=== PATIENT | female | born 1955 | race Caucasian/White ===

== ENCOUNTER → 2018-01-14 | Outpatient (CLI) | payer OTHER ==
--- NOTE | 2018-01-14 12:49 | WOMENS IMAGING REPORT ---
EXAM DESCRIPTION: BILAT SCREENING MAMMO W/CAD COMPLETED DATE/TIME: 01/14/2018 7:29 am REASON FOR STUDY: SCREENING MAMMO Z12.31 ENCNTR SCREEN MAMMOGRAM FOR MALIGNANT NEOPLASM OF KEENAN COMPARISON: 2012 TECHNIQUE: Standard craniocaudal and mediolateral oblique views of each breast recorded using digita l acquisition. LIMITATIONS: None. FINDINGS: Findings present which are benign by mammographic criteria. No suspicious masses, calcifi cations or architectural distortion. Pertinent benign findings: Stable benign asymmetrically dense tissue in the upper inner quadrant left breast Read with the assistance of CAD. .[facility] - R2 Cenova Version 1.3 .[facility] Imaging - R2 Cenova Version 1.3 .[facility] Imaging - R2 Cenova Version 2.[address] - R2 Cenova Version 2.4 .[facility] - R2 Steaming Cabinet Tender Version 9.2 Benign mammographic findings may include one or more of the following: Smooth masses, popcorn/rim/co arse calcifications, asymmetries, post-procedure changes, and lesions with long-standing stability. IMPRESSION: BENIGN MAMMOGRAPHIC FINDINGS. BIRADS 2 BREAST DENSITY: b. There are scattered areas of fibroglandular density. BIRAD: 2 BENIGN FINDING(S) RECOMMENDATION: ROUTINE SCREENING COMMENT: The patient has been notified of the results by letter per SA requirements. Additional no tification policies are in place for contacting patient with suspicious or incomplete findings. Quality ID #[id number]: The [employer] recommends an annual screening mammogram for women aged 40 years or over. This facility utilizes a reminder system to ensure that all patients receive reminder letters, and/or direct phone calls for appointments. This includes reminders for routine scr eening mammograms, diagnostic mammograms, or other Breast Imaging Interventions when appropriate. Th is patient will be placed in the appropriate reminder system. The [employer] (ACR) has developed recommendations for screening MRI of the breast s in certain patient populations, to be used in conjunction with mammography. Breast MRI surveillanc e may be appropriate for women with more than 20% lifetime risk of developing breast cancer as deter mined by genetic testing, significant family history of the disease, or history of mantle radiation f or Hodgkins Disease. ACR Practice Guidelines 2008. TECHNICAL DOCUMENTATION: FINDING NUMBER: (1) ASSESSMENT: (1) JOB ID: [id number] [employer]- All Rights Reserved Reading location - IP/workstation name: [facility]
== END ==
LOC: WI 07:12
PROVIDERS: ATTEND Physician Assistant Medical
DX: Z12.31 Encounter for screening mammogram for malignant neoplasm of breast (principal)
CPT/HCPCS: 77067

== ENCOUNTER 2018-11-09 07:21 | Observation (INO) | payer OTHER ==
[2018-11-09] MEDS ORDERED: DEXAMETHASONE SOD PHOSPHATE INJ 4 MG/1 ML VIAL ONE (08:09)
[2018-11-09] MEDS ORDERED: ONDANSETRON HCL INJ/PF 4 MG/2 ML SDV ONE ×2 (08:09→16:04)
[2018-11-09] MEDS ORDERED: SUCCINYLCHOLINE CHLORIDE INJ 200 MG/10 ML VIAL ONE (08:09)
[2018-11-09 09:29] LABS: ABSOLUTE EOSINOPHILS # (AUTO) 0.1 10^3/uL (0.0-0.6); ABSOLUTE LYMPHOCYTES (AUTO) 2.1 10^3/uL (0.5-4.7); ABSOLUTE MONOCYTES (AUTO) 0.7 10^3/uL (0.1-1.4); ABSOLUTE NEUT (AUTO) 3.4 10^3/uL (1.7-8.2); BASOPHILS % (AUTO) 0.4 % (0-2); EOSINOPHILS % (AUTO) 2.2 % (0-6); HEMATOCRIT 38.8 % (36.0-47.0); HEMOGLOBIN 13.1 g/dL (12.0-15.5); LYMPHOCYTES % (AUTO) 32.7 % (13-45); MEAN CORPUSCULAR HEMOGLOBIN 28.5 pg (27.0-33.4); MEAN CORPUSCULAR HGB CONC 33.8 g/dL (32.0-36.0); MEAN CORPUSCULAR VOLUME 84 fl (80-97); MONOCYTES % (AUTO) 10.5 % (3-13); PLATELET COUNT 210 10^3/uL (150-450); RED BLOOD COUNT 4.59 10^6/uL (3.72-5.28); RED CELL DISTRIBUTION WIDTH 13.2 % (11.5-14.0); SEGMENTED NEUTROPHILS % (AUTO) 54.2 % (42-78); TOTAL CELLS COUNTED % (AUTO) 100 %; WHITE BLOOD COUNT 6.4 10^3/uL (4.0-10.5)
[2018-11-09 09:43] LABS: ALANINE AMINOTRANSFERASE 22 U/L (9-52); ALBUMIN 4.5 g/dL (3.5-5.0); ALKALINE PHOSPHATASE 62 U/L (38-126); ANION GAP 8 (5-19); ASPARTATE AMINO TRANSFERASE 16 U/L (14-36); BILIRUBIN,DIRECT 0.2 mg/dL (0.0-0.4); BILIRUBIN,TOTAL 0.4 mg/dL (0.2-1.3); BLOOD UREA NITROGEN 14 mg/dL (7-20); CALCIUM 9.4 mg/dL (8.4-10.2); CARBON DIOXIDE 30 mmol/L (22-30); CHLORIDE 104 mmol/L (98-107); GLUCOSE 115 mg/dL (75-110); POTASSIUM 4.5 mmol/L (3.6-5.0); SODIUM 141.7 mmol/L (137-145); TOTAL PROTEIN 6.8 g/dL (6.3-8.2)
[2018-11-09] MEDS ORDERED: RINGERS SOLUTION,LACTATED 1,000 ML IV ONE (11:01)
[2018-11-09 11:40] LABS: APPEARANCE,URINE CLEAR; BILIRUBIN,URINE NEGATIVE (NEGATIVE); COLOR,URINE STRAW; GLUCOSE, URINE NEGATIVE (NEGATIVE); KETONES,URINE NEGATIVE (NEGATIVE); LEUKOCYTE ESTERASE,URINE NEGATIVE (NEGATIVE); NITRITE,URINE NEGATIVE (NEGATIVE); PROTEIN,URINE NEGATIVE (NEGATIVE); URINE SPECIFIC GRAVITY 1.011; UROBILINOGEN,URINE NEGATIVE mg/dL (<2.0)
--- NOTE | 2018-11-09 11:46 | ER Document Report ---
ED GI/ - General Chief Complaint: Abdominal Pain Stated Complaint: ABDOMINAL PAIN Time Seen by Provider: 11/09/18 08:41 Notes: Patient is a 63-year-old female presents to the emergency department for generalized right lower quadrant pain increasing in severity over the last 48 hours. Patient states she has had intermittent right lower abdominal pain for "20 years now." States she thinks she has a hernia but she is unsure. States she has never had follow-up with her primary care provider, surgery or butcher meat for this. Patient is denying any nausea, vomiting, diarrhea, fevers. Patient does have significant right lower abdominal pain noted with a slight bulge although patient is obese in size and examination is somewhat limited. Patient states "I have a high pain tolerance." She is currently refusing any pain medication in the emergency room. Past medical history: Asthma, hypertension, hyperlipidemia, depression Medication: Lisinopril, Crestor, Zyrtec Allergies: None Patient is denying any abdominal surgeries. TRAVEL OUTSIDE OF THE [place] IN LAST 30 DAYS: No - Related Data Allergies/Adverse Reactions: No Known Allergies Allergy (Verified 11/09/18 07:22) Past Medical History - General Information source: Patient - Social History Smoking Status: Never Smoker Chew tobacco use (# tins/day): No Frequency of alcohol use: None Drug Abuse: None Family History: Reviewed & Not Pertinent, Other Patient has suicidal ideation: No Patient has homicidal ideation: No - Past Medical History Cardiac Medical History: Denies: Hx Coronary Artery Disease, Hx Heart Attack, Hx Hypertension Pulmonary Medical History: Reports: Hx Bronchitis - yearly Denies: Hx Asthma, Hx COPD, Hx Pneumonia Neurological Medical History: Reports: Hx Migraine. Denies: Hx Cerebrovascular Accident, Hx Seizures Renal/ Medical History: Denies: Hx Peritoneal Dialysis Musculoskeletal Medical History: Denies Hx Arthritis Past Surgical History: Denies: Hx Hysterectomy - Immunizations Hx Diphtheria, Pertussis, Tetanus Vaccination: Yes Hx Pneumococcal Vaccination: 09/13/00 Review of Systems - Review of Systems Constitutional: No symptoms reported EENT: No symptoms reported Cardiovascular: No symptoms reported Respiratory: No symptoms reported Gastrointestinal: See HPI Genitourinary: denies: Burning, Dysuria Female Genitourinary: No symptoms reported Musculoskeletal: No symptoms reported Skin: No symptoms reported Hematologic/Lymphatic: No symptoms reported Neurological/Psychological: No symptoms reported Physical Exam - Vital signs Vitals: Temp Pulse Resp BP Pulse Ox 98.2 F 72 18 144/81 H 93 11/09/18 07:25 11/09/18 07:25 11/09/18 07:25 11/09/18 07:25 11/09/18 07:25 - Notes Notes: GENERAL: Alert, interacts well. No acute distress. HEAD: Normocephalic, atraumatic. EYES: Pupils equal, round, and reactive to light. Extraocular movements intact. ENT: Oral mucosa moist, tongue midline. NECK: Full range of motion. Supple. Trachea midline. LUNGS: Clear to auscultation bilaterally, no wheezes, rales, or rhonchi. No respiratory distress. HEART: Regular rate and rhythm. No murmur ABDOMEN: Soft, Non-distended. Bowel sounds present in all 4 quadrants. No right upper quadrant pain noted, no Solis sign. No left upper quadrant pain noted no left lower quadrant pain noted. Patient does have significant right lower abdominal pain more so on deep palpation. EXTREMITIES: Moves all 4 extremities spontaneously. No edema, normal radial and dorsalis pedis pulses bilaterally. No cyanosis. BACK: no cervical, thoracic, lumbar midline tenderness. No saddle anesthesia, normal distal neurovascular exam. NEUROLOGICAL: Alert and oriented x3. Normal speech. cranial nerves II through XII grossly intact PSYCH: Normal affect, normal mood. SKIN: Warm, dry, normal turgor. No rashes or lesions noted. Course - Re-evaluation Re-evalutation: Patient's labs show no signs of leukocytosis, no signs of anemia, patient's CMP is within normal limits, no signs of urinary tract infection noted on urine. Patient CT does show an appendix within a right inguinal hernia the appendix is mildly dilated measuring up to 7 mm with minimal adjacent andrew-appendiceal stranding, radiologist is recommending surgical consults. 11/09/18 13:37 Discussed case with surgeon Dr. Tang who will come to the emergency department to evaluate the patient. 11/09/18 14:[address] Tang states he will take the patient to the operating room for an appendectomy potential hernia repair. He is requesting Zosyn to be started at this time. I have reevaluated the patient and she continues to states she does not want any pain medication at this time. Patient continues to be n.p.o. and h as not eaten anything since 8:00 last night. Patient's vitals are stable awaiting transfer to the OR. - Vital Signs Vital signs: Temp Pulse Resp BP Pulse Ox 98.2 F 72 18 144/81 H 93 11/09/18 07:25 11/09/18 07:25 11/09/18 07:25 11/09/18 07:25 11/09/18 07:25 - Laboratory Result Diagrams: 11/09/18 09:10 11/09/18 09:10 Laboratory results interpreted by me: 11/09/18 11/09/18 09:10 09:20 Glucose 115 H Urine Blood SMALL H Discharge - Discharge Clinical Impression: Amyand hernia Condition: Stable Disposition: ADMITTED INPATIENT Admitting Provider: Surgicalist - Dr. Tang Unit Admitted: Surgical Floor
--- NOTE | 2018-11-09 13:16 | RADIOLOGY REPORT (SQ) ---
EXAM DESCRIPTION: CT ABD/PELVIS WITH IV ONLY COMPLETED DATE/TIME: 11/09/2018 12:53 pm REASON FOR STUDY: RLQ pain COMPARISON: None. TECHNIQUE: CT scan of the abdomen and pelvis performed using helical scanning technique with dynamic intravenous contrast injection. No oral contrast. Images reviewed with lung, soft tissue, and bone windows. Reconstructed coronal and sagittal MPR images reviewed. Delayed images for evaluation of the urinary system also acquired. All images stored on PACS. All CT scanners at this facility use dose modulation, iterative reconstruction, and/or weight based d osing when appropriate to reduce radiation dose to as low as reasonably achievable (ALARA). [facility]: Dose Right [facility]: CareDose [facility]: Dose Right [facility]: Teradose 4D [facility]: YinYangMap CONTRAST TYPE AND DOSE: 100 cc Omnipaque 350 RENAL FUNCTION: BUN 14, creatinine 0.78 RADIATION DOSE: CT Rad equipment meets quality standard of care and radiation dose reduction techniq ues were employed. CTDIvol: 16.9 - 18.5 mGy. DLP: 2067 mGy-cm.. LIMITATIONS: None. FINDINGS: LOWER CHEST: No significant findings. No nodules or infiltrates. LIVER: Normal size. No masses. No dilated ducts. SPLEEN: Normal size. No focal lesions. PANCREAS: No masses. No significant calcifications. No adjacent inflammation or peripancreatic fluid collections. Pancreatic duct not dilated. GALLBLADDER: No identified stones by CT criteria. No inflammatory changes to suggest cholecystitis. ADRENAL GLANDS: No significant masses or asymmetry. RIGHT KIDNEY AND URETER: No solid masses. No significant calcifications. No hydronephrosis or hyd roureter. LEFT KIDNEY AND URETER: No solid masses. No significant calcifications. No hydronephrosis or hydr oureter. AORTA AND VESSELS: No aneurysm. No dissection. Renal arteries, SMA, celiac without stenosis. RETROPERITONEUM: No retroperitoneal adenopathy, hemorrhage or masses. BOWEL AND PERITONEAL CAVITY: No focal bowel wall thickening. No evidence of intestinal obstruction. Extensive colonic diverticulosis. APPENDIX: The appendix is within a right inguinal hernia (Amyand hernia). The appendix is mildly dil ated measuring up to 7 mm with minimal adjacent periappendiceal stranding. No evidence of perforatio n. PELVIS: Enlarged heterogeneous appearance of the uterus likely secondary to uterine leiomyoma. Unrem arkable urinary bladder. ABDOMINAL WALL: Right inguinal hernia containing fat and the appendix (Amyand hernia). Left fat cont aining inguinal hernia. BONES: No acute abnormalities. Lower lumbar facet arthropathy. OTHER: No other significant finding. IMPRESSION: 1. The appendix is within a right inguinal hernia (Amyand hernia). The appendix is mil dly dilated measuring up to 7 mm with minimal adjacent periappendiceal stranding. No evidence of per foration. Recommend surgical consultation for further evaluation. 2. Enlarged heterogeneous uterus, likely secondary to uterine fibroids. TECHNICAL DOCUMENTATION: JOB ID: [id number] Quality ID # [id number]: Final reports with documentation of one or more dose reduction techniques (e.g., Au tomated exposure control, adjustment of the mA and/or kV according to patient size, use of iterative reconstruction technique) 2010 [employer]- All Rights Reserved Reading location - IP/workstation name: [email or web address]
[2018-11-09] MEDS ORDERED: NORMAL SALINE 1000 ML 1,000 ML IV ONE (14:53)
[2018-11-09] MEDS ORDERED: PIPERACILLIN/TAZOBACTAM 3.375 GM VIAL IV ONE (14:53)
[2018-11-09] MEDS ORDERED: PROPOFOL INJ 200 MG/20 ML VIAL IV ONE (16:06)
[2018-11-09] MEDS ORDERED: FENTANYL CITRATE INJ/PF 100 MCG/2 ML AMPUL ONE (16:06)
[2018-11-09] MEDS ORDERED: MIDAZOLAM 2 MG/2 ML INJ ONE (16:06)
[2018-11-09] MEDS ORDERED: ACETAMINOPHEN 1,000 MG/100 ML RTUPB IV ONE (16:06)
[2018-11-09] MEDS ORDERED: BUPIVACAINE HCL 0.25 % INJ/PF (2.5 MG/1 ML) 30 ML VIAL ONE (16:18)
[2018-11-09] MEDS ORDERED: CEFAZOLIN INJ 1 GM VIAL ONE (16:41)
[2018-11-09] MEDS ORDERED: DIPHENHYDRAMINE HCL 50 MG/ML VIAL IV PRN (16:56)
[2018-11-09] MEDS ORDERED: MEPERIDINE HCL/PF INJ 25 MG/1 ML DISP.SYRIN IV PRN (16:56)
[2018-11-09] MEDS ORDERED: MORPHINE SULFATE 10 MG/ML INJ IV PRN (16:56)
[2018-11-09] MEDS ORDERED: ONDANSETRON HCL INJ/PF 4 MG/2 ML SDV IV PRN ×2 (16:56→17:48)
[2018-11-09] MEDS ORDERED: PROMETHAZINE HCL INJ 25 MG/1 ML VIAL IV PRN (16:56)
[2018-11-09] MEDS ORDERED: FENTANYL CITRATE INJ/PF 100 MCG/2 ML AMPUL IV PRN ×3 (16:56)
[2018-11-09] MEDS ORDERED: KETOROLAC TROMETHAMINE INJ/PF 30 MG/1 ML SDV IV PRN (17:48)
[2018-11-09] MEDS ORDERED: NORMAL SALINE 1000 ML 1,000 ML IV PRN (17:48)
[2018-11-09] MEDS: FENTANYL CITRATE INJ/PF 100 MCG/2 ML AMPUL ONE ×2 (18:00→18:05)
--- NOTE | 2018-11-09 20:57 | HISTORY AND PHYSICAL E ---
History and Physical NAME: KIM ALBERT : 1955 AGE: 63Y ADMITTED: 11/09/2018 ROOM: 426 CHIEF COMPLAINT: Abdominal pain. HISTORY OF PRESENT ILLNESS: This is a 63-year-old female complaining of right lower quadrant pains for the past 48 hours without any nausea, vomiting, or fever. Denies any diarrhea and no constipation. She claims she diagnosed herself to have a hernia in the past, and she would have some pains in the right groin. She would push it back and get some relief, but has never been diagnosed by any physician. PAST HISTORY: History of hypertension. Takes lisinopril. History of bronchial asthma and takes Pulmocare. PAST SURGICAL HISTORY: No previous surgery other than 2 colonoscopies, the last one about 6 years ago. She says she was due for another colonoscopy last year. FAMILY HISTORY: Father at age 57 of gallbladder cancer. Mother is alive and well with just hypertension. ALLERGIES: None known. REVIEW OF SYSTEMS: As in HPI. Denies any headaches, cough, chest pains. No balance problems. No seizures. No difficulty passing her urine. No passing out spells. No skin problems. No muscle problems. PHYSICAL EXAMINATION: GENERAL: Well-developed, slightly obese 63-year-old female, alert and oriented, complaining of right lower quadrant pain. HEENT: Neck is supple, no thyromegaly. LUNGS: Clear. HEART: Regular sinus rhythm. ABDOMEN: Soft with tenderness just below McBurney's point. There appears to be point tenderness at the area. No obvious hernia palpated at this time. EXTREMITIES: No edema. RECTAL: Deferred. IMPRESSION: ACUTE APPENDICITIS. PLAN: Patient for laparoscopic appendectomy. Will start her on intravenous antibiotics. DICTATING PHYSICIAN: MIKE MARCUS M.D. [id number] PHY#: [id number] ID: [id number] JOB#: [id number] ACCT: [id number] cc:MIKE MARCUS M.D. >
[2018-11-09] MEDS: PIPERACILLIN SODIUM/TAZOBACTAM 3.375 GM in NORMAL SALINE 100 ML IV SCH (20:59)
--- NOTE | 2018-11-09 23:48 | OPERATIVE REPORT E ---
Operative Report NAME: KIM ALBERT : 1955 AGE: 63Y DATE OF SURGERY: 11/09/2018 ROOM: 426 PREOPERATIVE DIAGNOSIS: Acute appendicitis. POSTOPERATIVE DIAGNOSIS: Acute appendicitis. OPERATION: Laparoscopic appendectomy. SURGEON: MIKE MARCUS M.D. ANESTHESIA: General. INDICATION: This is a 63-year-old female with about 40 hours duration of right lower quadrant pains with no nausea, vomiting, nor diarrhea or constipation. She had a CT scan in the ED, which showed slightly inflamed appendix in the right inguinal hernia sac area. The patient was markedly tender in the right lower quadrant, more towards the inguinal area site. DESCRIPTION OF PROCEDURE: After adequate general anesthesia the patient was placed in the supine position and the abdomen prepped and draped in the usual sterile fashion. An appropriate timeout was then called. Infraumbilical incision was made and the fascia identified with grasped with 2 Caleb clamps on each side. Two sutures of 0 Vicryl were placed on each side of the trocar and the trocars released. With blunt digital dissection the peritoneal cavity was then entered. Next a Carrington trocar was then inserted through the fascia to the abdominal cavity and insufflated pressure of 15 mmHg. Next 2 other trocars were placed, a 5 mm in the suprapubic and a 12 mm in the left lower quadrant. Next the appendix was noted to be inside the hernia sac on the right side. The appendix was pulled out quite easily and it was noted to be quite inflamed. However, the base of the appendix noted to be free of any inflammation. The mesoappendix was then divided with the use of Harmonic vanesa. The base of the appendix was then identified and subsequently stapled with a 30 MARCIANO blue staple. The appendiceal specimen was then placed in an Endobag and pulled out through the umbilical port. The Carrington was then put back and stump of the appendix inspected and noted to be without any bleeding. No other obvious abnormality other than the right inguinal hernia that was left in place. Next a small amount of blood stained fluid was then suctioned out from the pelvis. Following this all the trocars were removed and CO2 allowed to come out of the trocar sites. Fascial defect at the infraumbilical area was then closed with a [id number] suture using 0 Vicryl and the 2 stay sutures tied together. Marcaine with epinephrine was then injected through the fascia and to all the subcu skin incision sites. Next all the skin incisions were then closed with running subcuticular closure using 4-0 Vicryl undyed. Sterile dressings placed over the operative site. Needle, instrument, and sponge count were all correct. Estimated blood loss was about 10 mL. DICTATING PHYSICIAN: MIKE MARCUS M.D. [id number] PHY#: [id number] ID: [id number] JOB#: [id number] ACCT: [id number] cc:MIKE MARCUS M.D. >
[2018-11-10] MEDS: PIPERACILLIN SODIUM/TAZOBACTAM 3.375 GM in NORMAL SALINE 100 ML IV SCH ×2 (03:01→09:56)
[2018-11-10 08:38] VITALS: BP 148/55
--- NOTE | 2018-11-10 11:13 | DISCHARGE SUMMARY E ---
Discharge Summary NAME: KIM ALBERT : 1955 AGE: 63Y ADMITTED: 11/09/2018 DISCHARGED: FINAL DIAGNOSES: 1. Acute appendicitis. 2. Right inguinal hernia. PROCEDURE DONE: Laparoscopic appendectomy, 11/09/2018. SURGEON: Mike Tang M.D. HOSPITAL COURSE: This is a 63-year-old female complaining of right lower quadrant pain for the past 48 hours prior to being seen in the emergency department. She had a CAT scan of the abdomen, which showed acute appendicitis and hernia sac, compatible with Amyand appendicitis. The patient was then taken to the OR for laparoscopic appendectomy, where acute appendix was noted in a right inguinal hernia site. The appendectomy was then performed uneventfully. Postoperatively the patient did very well, tolerating a regular diet on the day of discharge on 11/10/2018. All the wounds looked good and the patient did not require any pain medications on discharge other than just plain Tylenol p.r.n. for pain. The patient subsequently discharged improved on 11/10/2018 with above final diagnoses. Patient to be followed up in the surgical clinic in about 10 days. Patient advised not to do any lifting more than 15 pounds for the next 2 weeks. She can shower and she can take Tylenol p.r.n. for pain. DICTATING PHYSICIAN: MIKE TANG M.D. [id number] PHY#: [id number] ID: [id number] JOB#: [id number] ACCT: [id number] cc:MIKE TANG M.D. [facility],
--- NOTE | 2018-11-10 22:07 | EKG REPORT ---
SEVERITY:- NORMAL ECG - SINUS RHYTHM : Confirmed by: Dahlia Diaz 10-Nov-2018 22:05:28
== END 2018-11-10 12:21 | disposition home or self-care (01) ==
LOC: ER 07:21 → EH 14:59 → INTOOBSV 14:59 → 4S 18:44
PROVIDERS: ATTEND Surgery
PROC: 0DTJ4ZZ Resection of Appendix, Percutaneous Endoscopic Approach (ICD-10-PCS; principal; 2018-11-09 14:15)
DX: K35.80 Unspecified acute appendicitis (principal); K40.90 Unilateral inguinal hernia, without obstruction or gangrene, not specified as recurrent; I10 Essential (primary) hypertension; E66.9 Obesity, unspecified; E78.5 Hyperlipidemia, unspecified; Z79.899 Other long term (current) drug therapy; Z80.0 Family history of malignant neoplasm of digestive organs
CPT/HCPCS: 99285; 96360; 96361; 36415; 87086; 85025; 80053; 81001; 88304 ×2; 74177; 93005; 93010; 44970; J2250; J0690; J1100; J3010; J0330; J2405; J7030; J7120; J2704; J2543 ×2; J0131; 840

== ENCOUNTER 2018-12-13 07:22 | Day surgery (SDC) | payer OTHER ==
[~2018-12-13 07:22] MED LIST: LACTATED RINGERS 1000 ML IV PRN; LIDOCAINE 0.5% INJ-PF (5 MG/ML) 50 ML SDV SUBCUT PRN; PROPOFOL INJ 200 MG/20 ML VIAL IV ONE
[2018-12-13] MEDS ORDERED: ALBUTEROL SULFATE 0.083% NEB 2.5 MG/3 ML AMPUL NEB ONE (07:41)
[2018-12-13] MEDS ORDERED: PROPOFOL INJ 200 MG/20 ML VIAL IV ONE (09:05)
[2018-12-13] MEDS ORDERED: ONDANSETRON HCL INJ/PF 4 MG/2 ML SDV IV PRN (09:06)
[2018-12-13 11:11] VITALS: BP 132/80
--- NOTE | 2018-12-13 11:12 | Discharge Summary ---
Discharge Summary (SDC) - Discharge Final Diagnosis: Normal screening colonoscopy, diverticulosis, internal hemorrhoids. Date of Surgery: 12/13/18 Discharge Date: 12/13/18 Condition: Stable Forms: ASU Anesthesia D/C Instruction, Discharge POC-Surgical Service Treatment or Instructions: Return to physician as directed. Referrals: ABIGAIL REYNOLDS MD [ACTIVE STAFF] - Discharge Diet: As Tolerated Respiratory Treatments at Home: Deep Breathing/Coughing, Incentive Spirometer Discharge Activity: Balance Activity w/Rest Home Care Assistance: None Needed Report the Following to Your Physician Immediately: Shortness of Breath, Nausea, Vomiting, Increase in Pain, Fever over 101 Degrees, Unusual Bleeding, Redness, Swelling, Warmth
--- NOTE | 2018-12-13 11:16 | Operative Report ---
Nonrecallable Operative Report DATE OF SURGERY: 12/13/18 PREOPERATIVE DIAGNOSIS: Screening for malignancy POSTOPERATIVE DIAGNOSIS: 1. Normal screening colonoscopy. 2. Diverticulosis. 3. Small internal hemorrhoids and anal skin tags. OPERATION: Normal screening colonoscopy SURGEON: ABIGAIL REYNOLDS ANESTHESIA: LMAC TISSUE REMOVED OR ALTERED: None COMPLICATIONS: None apparent ESTIMATED BLOOD LOSS: None PROCEDURE: Procedure in detail: After informed consent was obtained, the patient was brought to the operating room and laid in the left lateral decubitus position. The endoscope was passed up the rectum, sigmoid colon, transverse colon, down the ascending colon, and into the cecum. The ileocecal valve and appendiceal orifice were identified. The scope was withdrawn, circumferentially noting the mucosa. The prep was excellent. The scope was pulled back past the ascending colon, transverse colon, down the descending colon, sigmoid colon, and into the rectum. Please note that throughout the colon there were multiple diverticula throughout, extending from the cecum to the sigmoid colon. In the rectum a retroflexion maneuver was performed, noting small nonbleeding internal hemorrhoids. The scope was straightened, air was suctioned from the rectum, the scope was removed, and the procedure was concluded. Please note there were no masses, lesions, ulcerations, areas of bleeding, polyps, tumors, or other abnormalities, except for the aforementioned diverticulosis and hemorrhoids. Condition: Stable. Recommendation: Repeat colonoscopy in 5-10 years (5 years if the patient's previous polyps were adenomatous, 10 years if the patient's previous polyps were hyperplastic. I will investigate this to make the determination.)
--- NOTE | 2018-12-13 13:28 | EKG REPORT ---
SEVERITY:- ABNORMAL ECG - SINUS RHYTHM LEFT VENTRICULAR HYPERTROPHY : Confirmed by: Akil Wills MD 13-Dec-2018 13:27:56
== END 2018-12-13 11:15 | disposition home or self-care (01) ==
LOC: OROUT 07:22
PROVIDERS: ATTEND Surgery
DX: Z12.11 Encounter for screening for malignant neoplasm of colon (principal); K57.30 Diverticulosis of large intestine without perforation or abscess without bleeding; K64.8 Other hemorrhoids; K64.4 Residual hemorrhoidal skin tags; Z86.010 Personal history of colon polyps; J45.909 Unspecified asthma, uncomplicated; I10 Essential (primary) hypertension; I25.10 Atherosclerotic heart disease of native coronary artery without angina pectoris; G47.33 Obstructive sleep apnea (adult) (pediatric); Z79.899 Other long term (current) drug therapy; Z79.51 Long term (current) use of inhaled steroids
CPT/HCPCS: 45380; 93005; 93010; 94640; J2704; 811

== ENCOUNTER → 2019-01-27 | Day surgery (SDC) | payer OTHER ==
[2019-01-19 11:05] LABS: HEMATOCRIT 39.6 % (36.0-47.0); HEMOGLOBIN 13.1 g/dL (12.0-15.5); MEAN CORPUSCULAR HEMOGLOBIN 27.9 pg (27.0-33.4); MEAN CORPUSCULAR HGB CONC 33.2 g/dL (32.0-36.0); MEAN CORPUSCULAR VOLUME 84 fl (80-97); PLATELET COUNT 219 10^3/uL (150-450); RED BLOOD COUNT 4.71 10^6/uL (3.72-5.28); RED CELL DISTRIBUTION WIDTH 13.4 % (11.5-14.0); WHITE BLOOD COUNT 6.3 10^3/uL (4.0-10.5)
--- NOTE | 2019-01-19 11:21 | RADIOLOGY REPORT (SQ) ---
EXAM DESCRIPTION: CHEST PA/LATERAL COMPLETED DATE/TIME: 01/19/2019 11:00 am REASON FOR STUDY: PRE-OP, hernia repair COMPARISON: 08/17/2013 EXAM PARAMETERS: NUMBER OF VIEWS: two views TECHNIQUE: Digital Frontal and Lateral radiographic views of the chest acquired. RADIATION DOSE: NA LIMITATIONS: none FINDINGS: LUNGS AND PLEURA: Minimal linear left basilar opacity, likely atelectasis. No focal conso lidation, masses or pneumothorax. No pleural effusion. MEDIASTINUM AND HILAR STRUCTURES: No masses or contour abnormalities. HEART AND VASCULAR STRUCTURES: Heart normal size. No evidence for failure. BONES: No acute findings. HARDWARE: None in the chest. OTHER: No other significant finding. IMPRESSION: NO SIGNIFICANT RADIOGRAPHIC FINDING IN THE CHEST. TECHNICAL DOCUMENTATION: JOB ID: [id number] [employer]- All Rights Reserved Reading location - IP/workstation name: [email or web address]
[2019-01-19 11:28] LABS: ANION GAP 13 (5-19); BLOOD UREA NITROGEN 15 mg/dL (7-20); CALCIUM 9.8 mg/dL (8.4-10.2); CARBON DIOXIDE 28 mmol/L (22-30); CHLORIDE 100 mmol/L (98-107); GLUCOSE 101 mg/dL (75-110); POTASSIUM 4.5 mmol/L (3.6-5.0); SODIUM 140.9 mmol/L (137-145)
--- NOTE | 2019-01-19 19:40 | EKG REPORT ---
SEVERITY:- NORMAL ECG - SINUS RHYTHM : Confirmed by: Melia Tinsley MD 19-Jan-2019 19:39:31
[~2019-01-27] MED LIST changes: +ALBUTEROL SULFATE 0.083% NEB 2.5 MG/3 ML AMPUL NEB ONE; +BUPIVACAINE HCL 0.25 % INJ/PF (2.5 MG/1 ML) 30 ML VIAL ONE; +CEFAZOLIN 2 GM/D5W RTU 2 GM/50 ML RTUPB IV ONE; +CEFAZOLIN 2 GM/D5W RTU 2 GM/50 ML RTUPB IV PRN; +DEXAMETHASONE SOD PHOSPHATE INJ 4 MG/1 ML VIAL ONE; +DIPHENHYDRAMINE HCL 50 MG/ML VIAL IV PRN; +FENTANYL CITRATE INJ/PF 100 MCG/2 ML AMPUL IV PRN; +FENTANYL CITRATE INJ/PF 100 MCG/2 ML AMPUL ONE; +FENTANYL CITRATE INJ/PF 250 MCG/5 ML AMPULE ONE; +GLYCOPYRROLATE 1 MG/5 ML SYRINGE ONE; +HYDROCODONE/ACETAMINOPHEN 10-325 MG TABLET ONE; +HYDROMORPHONE HCL INJ/PF 2 MG/ML AMPULE ONE; +IBUPROFEN 800 MG in NORMAL SALINE 250 ML IV PRN; +LIDOCAINE 0.5% INJ-PF (5 MG/ML) 50 ML SDV ONE; +MEPERIDINE HCL/PF INJ 25 MG/1 ML DISP.SYRIN IV PRN; +MIDAZOLAM 2 MG/2 ML INJ ONE; +MORPHINE SULFATE 10 MG/ML INJ IV PRN; +ONDANSETRON 4 MG TAB.RAPDIS ONE; +ONDANSETRON HCL INJ/PF 4 MG/2 ML SDV IV PRN; +ONDANSETRON HCL INJ/PF 4 MG/2 ML SDV ONE; +PROMETHAZINE HCL INJ 25 MG/1 ML VIAL IV PRN; +ROCURONIUM BROMIDE INJ 50 MG/5 ML VIAL IV ONE; +SUCCINYLCHOLINE CHLORIDE INJ 200 MG/10 ML VIAL ONE; +SUGAMMADEX SODIUM 200 MG/2 ML SDV IV ONE
[2019-01-27] MEDS: FENTANYL CITRATE INJ/PF 100 MCG/2 ML AMPUL IV PRN ×2 (09:53→10:03)
[2019-01-27 11:41] VITALS: BP 148/92
--- NOTE | 2019-01-28 13:16 | Discharge Summary ---
Discharge Summary (SDC) - Discharge Final Diagnosis: Right sided Spigelian hernia Date of Surgery: 01/27/19 Discharge Date: 01/27/19 Forms: ASU Anesthesia D/C Instruction, Discharge POC-Surgical Service Treatment or Instructions: RETURN TO PHYSICIAN DIRECTED. Discharge home. Diet as tolerated. Activity: No lifting greater than 10 pounds x 6 weeks. Follow-up with me in 7 to 10 days. Gormania 10/325 mg p.o. every 6 hours as needed for pain. Ibuprofen 800 mg p.o. 3 times daily with meals. Okay to shower in 48 hours. No tub baths or swimming pools x2 weeks. Referrals: ABIGAIL REYNOLDS MD [ACTIVE STAFF] - 02/07/19 10:45 am Discharge Diet: As Tolerated Respiratory Treatments at Home: Deep Breathing/Coughing Discharge Activity: No Lifting Over 10 Pounds, No Lifting/Push/Pulling Home Care Assistance: None Needed Report the Following to Your Physician Immediately: Shortness of Breath, Nausea, Vomiting, Increase in Pain, Fever over 101 Degrees, Unusual Bleeding, Redness, Swelling, Warmth
--- NOTE | 2019-01-28 13:23 | Operative Report ---
Nonrecallable Operative Report DATE OF SURGERY: 01/27/19 PREOPERATIVE DIAGNOSIS: Right lower quadrant hernia POSTOPERATIVE DIAGNOSIS: Right sided Spigelian hernia OPERATION: Robot-assisted laparoscopic repair of right sided Spigelian hernia. SURGEON: ABIAGIL REYNOLDS 1ST STEREOTYPE FINISHER: VIRGINIA MILLER ANESTHESIA: GA TISSUE REMOVED OR ALTERED: None COMPLICATIONS: None apparent ESTIMATED BLOOD LOSS: Minimal PROCEDURE: Drains/implants: 15 x 15 cm regular Bard mesh. Procedure in detail: After informed consent was obtained, the patient was brought into the operating room and laid in the supine position. The area of the abdomen was prepped and draped in a normal sterile fashion. A supraumb ilical incision was created with a 15 blade scalpel. Dissection was carried through the subcutaneous tissue using sharp and blunt dissection. The linea alba fascia was incised sharply, the abdomen was entered sharply. The balloon trocar was inserted, and pneumoperitoneum was achieved. 2 more 8 mm robotic trochars were then placed in the right and left lateral abdominal wall. The robot was brought over the patient and docked appropriately. I then assumed my position at the surgeon's consult. Attention was turned to the right lower quadrant. There was an obvious hernia defect present. A preperitoneal dissection was then undertaken, ensuring a large peritoneal overlap. Dissection was carried down into the groin, through the preperitoneal space. A hernia defect was identified at the semilunar line, confirming a Spigelian hernia. Dissection was carried down to the pelvic brim. There was no inguinal component to the hernia. There is a large amount of preperitoneal fat within the hernia defect. This was reduced. The small hernia defect was then closed using 2-0 Vicryl suture in [id number] fashion. Once this was completed, a 15 x 15 cm piece of Bard mesh was felt to adequately cover the defect. It was placed into the preperitoneal space and sutured to the anterior abdominal wall using 2-0 Vicryl suture in simple interrupted fashion. Once this was completed, the peritoneum was closed using 2-0 V Lock Suture in simple running fashion. The robot was undocked, and I scrubbed back into the case. The trochars were removed. The supraumbilical fascia was closed using 0 Vicryl suture in [id number] fashion. The overlying skin was closed using 4-0 Vicryl Rapide suture in subcuticular fashion. Dressings were placed, and the procedure was concluded. All sponge, instrument, and needle counts were correct x2. Condition: Stable. Virginia Miller PA-C was scrubbed and present the entirety the procedure. She assisted with all portions of the procedure including placement of the trochars, docking the robot, exchanging of the robotic instruments, insertion of the mesh, closure of the fascia, and closure of the skin.
== END ==
LOC: OROUT 05:34
PROVIDERS: ATTEND Surgery
DX: K43.9 Ventral hernia without obstruction or gangrene (principal); J45.909 Unspecified asthma, uncomplicated; I10 Essential (primary) hypertension; G47.33 Obstructive sleep apnea (adult) (pediatric); E66.9 Obesity, unspecified; Z86.010 Personal history of colon polyps; Z79.899 Other long term (current) drug therapy; Z79.51 Long term (current) use of inhaled steroids; Z68.37 Body mass index [BMI] 37.0-37.9, adult
CPT/HCPCS: 49652; S2900; 36415; 71046; 80048; 85027; 93005; 93010; C1781; J0330; J0690; J1100; J1170; J1741; J2250; J2405; J2704; J3010; J3490; J7050; S0119

== ENCOUNTER → 2020-04-18 | Outpatient (CLI) | payer OTHER ==
--- NOTE | 2020-04-18 17:32 | RADIOLOGY REPORT (SQ) ---
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 TECHNIQUE: Dynamic and static grayscale images acquired of the pelvis via transabdominal approach an d recorded on PACS. Additional selected color Doppler and spectral images recorded. LIMITATIONS: None. FINDINGS: UTERUS: Large uterine fibroid with maximum diameter of 6.4 cm. ENDOMETRIAL STRIPE: Endometrium is not clearly seen because of the fibroid. CERVIX: 1.7 cm. RIGHT OVARY AND DOPPLER: Normal size. No worrisome masses. Normal arterial vascular flow without evid ence for torsion. LEFT OVARY AND DOPPLER: Normal size. No worrisome masses. Normal arterial vascular flow without evide nce for torsion. FREE FLUID: None noted. OTHER: No other significant finding. MEASUREMENTS: UTERUS: 9.7 x 7.2 x 6.1 cm. ENDOMETRIAL STRIPE: Not clearly seen. RIGHT OVARY: 2.6 x 2.3 x 1.7 cm. LEFT OVARY: 2.7 x 1.6 x 1.8 cm. IMPRESSION: Large uterine fibroid. The endometrium is not well seen. No ovarian mass is appreciate d on this transabdominal scan. TECHNICAL DOCUMENTATION: JOB ID: [id number] 2010 [employer]- All Rights Reserved Rev-01/28 Reading location - IP/workstation name: [email or web address]
== END ==
LOC: RAD 15:27
PROVIDERS: ATTEND Physician Assistant
DX: D39.12 Neoplasm of uncertain behavior of left ovary (principal); D25.9 Leiomyoma of uterus, unspecified
CPT/HCPCS: 76856

== ENCOUNTER → 2020-04-26 | Outpatient (CLI) | payer OTHER ==
--- NOTE | 2020-04-26 14:21 | WOMENS IMAGING REPORT ---
EXAM DESCRIPTION: BONE DENSITY HIP/SPINE IMAGES COMPLETED DATE/TIME: 04/26/2020 2:01 pm REASON FOR STUDY: Z78.0 Z12.31 ENCNTR SCREEN MAMMOGRAM FOR MALIGNANT NEOPLASM OF KEENAN Z78.0 ASYMPTO MATIC MENOPAUSAL STATE COMPARISON: None. TECHNIQUE: Dual-Energy X-ray Absorptiometry (DEXA) of the AP Spine and Hip. LIMITATIONS: None. FINDINGS: LUMBAR SPINE: The bone mineral density (BMD) measured from L1-L4 in the AP projection correlates with a T-score of 1.2, which is normal as defined by the World Health Organization. HIP: The bone mineral density (BMD) measured in the left hip correlates with a T-score of , which is kevin l as defined by the World Health Organization. IMPRESSION: 1. LUMBAR SPINE: NORMAL. 2. HIP: NORMAL. COMMENT: The World Health Organization defines low BMD as follows: T-score: Normal: Greater than -1.0 Osteopenia: Between -1.0 and -2.5 Osteoporosis: Less than -2.5 without fractures Established osteoporosis: Less than -2.5 with fractures In general, you may wish to consider: Diagnosis Treatment Follow-up DEXA Normal BMD Prevention 2-3 years Osteopenia Prevention/Therapy 1-2 years Osteoporosis Therapy Yearly TECHNICAL DOCUMENTATION: JOB ID: [id number] 2010 [employer]- All Rights Reserved Reading location - IP/workstation name: [email or web address]
--- NOTE | 2020-04-27 08:30 | WOMENS IMAGING REPORT ---
EXAM DESCRIPTION: 3D SCREENING MAMMO BILAT IMAGES COMPLETED DATE/TIME: 04/26/2020 2:01 pm REASON FOR STUDY: ROUTINE SCREENING MAMMOGRAM Z12.31 Z12.31 ENCNTR SCREEN MAMMOGRAM FOR MALIGNANT N EOPLASM OF KEENAN Z78.0 ASYMPTOMATIC MENOPAUSAL STATE COMPARISON: None. 2012, 2017 EXAM PARAMETERS: Standard craniocaudal and mediolateral oblique views of each breast recorded using digital acquisition and breast tomosynthesis. Read with the assistance of CAD. .[facility] - [employer] Version 9.2 LIMITATIONS: None. FINDINGS: RIGHT BREAST MASSES: Subcentimeter mammographic mass lower inner quadrant right breast 10 cm from the nipple about the 4-6 o'clock position. Follow-up right breast 90 mediolateral tomosynthesis, cone compression i n the CC and MLO views, and ultrasound recommended CALCIFICATIONS: No new or suspicious calcifications. ARCHITECTURAL DISTORTION: None. ASYMMETRY: None noted. OTHER: No other significant findings. LEFT BREAST MASSES: No suspicious masses. CALCIFICATIONS: No new or suspicious calcifications. ARCHITECTURAL DISTORTION: None. ASYMMETRY: Stable asymmetry left breast upper inner quadrant unchanged from 2013. OTHER: No other significant findings. IMPRESSION: Subcentimeter mammographic mass right breast lower inner quadrant 10 cm from the nipple for which additional 90 tomosynthesis, cone compression views and ultrasound are recommended 0 Incomplete: Needs Additional Imaging Evaluation and/or prior Mammograms for Comparison. BREAST DENSITY: b. There are scattered areas of fibroglandular density. BIRAD: ASSESSMENT: 0 Incomplete: Needs Additional Imaging Evaluation and/or prior Mammograms for C omparison. RECOMMENDATION: RECOMMENDED FOLLOW-UP: Additional right breast cone compression views and ultrasound The patient will be contacted for additional imaging. COMMENT: The patient has been notified of the results by letter per [place] requirements. Additional no tification policies are in place for contacting patient with suspicious or incomplete findings. Quality ID #225: The [employer] recommends an annual screening mammogram for women aged 40 years or over. This facility utilizes a reminder system to ensure that all patients receive reminder letters, and/or direct phone calls for appointments. This includes reminders for routine scr eening mammograms, diagnostic mammograms, or other Breast Imaging Interventions when appropriate. Th is patient will be placed in the appropriate reminder system. TECHNICAL DOCUMENTATION: FINDING NUMBER: (1) ASSESSMENT: (1) JOB ID: [id number] [employer]- All Rights Reserved Reading location - IP/workstation name: [email or web address]
== END ==
LOC: WI 13:57
PROVIDERS: ATTEND Physician Assistant
DX: Z12.31 Encounter for screening mammogram for malignant neoplasm of breast (principal); Z78.0 Asymptomatic menopausal state
CPT/HCPCS: 77063; 77067; 77080

== ENCOUNTER → 2020-04-30 | Outpatient (CLI) | payer OTHER ==
--- NOTE | 2020-04-30 14:13 | WOMENS IMAGING REPORT ---
EXAM DESCRIPTION: U/S BREAST UNILAT LIMITED COMPLETE DATE/TIME: 04/30/2020 1:25 pm REASON FOR STUDY: RT BREAST 92.2 R92.2 INCONCLUSIVE MAMMOGRAM FINDINGS: Please see combined report for performance of procedure and radiologic supervision and int erpretation. IMPRESSION: Please see combined report for performance of procedure and radiologic supervision and i nterpretation. Reading location - IP/workstation name: [email or web address]
--- NOTE | 2020-04-30 14:13 | WOMENS IMAGING REPORT ---
EXAM DESCRIPTION: RIGHT DIAGNOSTIC MAMMO W/CAD IMAGES COMPLETED DATE/TIME: 04/30/2020 12:39 pm REASON FOR STUDY: RT DIAGNOSTIC MAMMO R92.2 R92.2 INCONCLUSIVE MAMMOGRAM COMPARISON: Digital tomosynthesis bilateral screening mammogram dated 04/26/2020 and digital bilatera l screening mammogram dated 01/14/2018 and 05/25/2013. EXAM PARAMETERS: Standard craniocaudal and mediolateral oblique images of the breast recorded with d igital acquisition. Read with the assistance of CAD. .[facility] - [employer] Version 9.2 LIMITATIONS: None. FINDINGS: BREAST LATERALITY: RIGHT MASSES: Persistent mass in the lower medial breast on the spot compression and additional views. CA LCIFICATIONS: No new or suspicious calcifications. ARCHITECTURAL DISTORTION: None. ASYMMETRY: None noted. OTHER: No other significant findings. BREAST ULTRASOUND: TECHNIQUE: Static and dynamic grayscale images acquired of the right breast in the specific areas of clinical/mammographic concern. Selected color Doppler images recorded. ELASTOGRAPHY PERFORMED: No. LIMITATIONS: None. FINDINGS: MASS: There is either a small cluster of cysts versus septated cyst between the 4-5 o'clock axes, 6- 8.0 cm from the nipple. The largest measures 4 x 3 x 3 mm. This finding may correlate to the right breast mammogram. ELASTOGRAPHY CHARACTERISTICS: Not applicable. OTHER: No other significant finding. IMPRESSION: 1. Between the 4-5 o'clock axes Right breast, there is either a small cluster of cysts versus septated cyst as above. BREAST DENSITY: b. There are scattered areas of fibroglandular density. BIRAD: ASSESSMENT: 3-6 M Probably benign finding. Initial short-interval follow-up suggested. RECOMMENDATION: 1. Six month Right breast mammogram and ultrasound. COMMENT: The patient has been notified of the results by letter per MQSA requirements. Additional no tification policies are in place for contacting patient with suspicious or incomplete findings. Quality ID #225: The [employer] recommends an annual screening mammogram for women aged 40 years or over. This facility utilizes a reminder system to ensure that all patients receive reminder letters, and/or direct phone calls for appointments. This includes reminders for routine scr eening mammograms, diagnostic mammograms, or other Breast Imaging Interventions when appropriate. Th is patient will be placed in the appropriate reminder system. TECHNICAL DOCUMENTATION: FINDING NUMBER: (1) ASSESSMENT: (1) JOB ID: [id number] 2010 [employer]- All Rights Reserved Reading location - IP/workstation name: [email or web address]
== END ==
LOC: WI 12:15
PROVIDERS: ATTEND Physician Assistant
DX: R92.2 Inconclusive mammogram (principal)
CPT/HCPCS: 76642; 77065

== ENCOUNTER → 2020-05-04 | Outpatient (CLI) | payer OTHER ==
[2020-05-04 10:17] LABS: ABSOLUTE EOSINOPHILS # (AUTO) 0.1 10^3/uL (0.0-0.6); ABSOLUTE LYMPHOCYTES (AUTO) 1.8 10^3/uL (0.5-4.7); ABSOLUTE MONOCYTES (AUTO) 0.6 10^3/uL (0.1-1.4); ABSOLUTE NEUT (AUTO) 2.9 10^3/uL (1.7-8.2); BASOPHILS % (AUTO) 0.4 % (0-2); EOSINOPHILS % (AUTO) 2.6 % (0-6); HEMATOCRIT 39.8 % (36.0-47.0); HEMOGLOBIN 13.2 g/dL (12.0-15.5); LYMPHOCYTES % (AUTO) 32.6 % (13-45); MEAN CORPUSCULAR HEMOGLOBIN 28.2 pg (27.0-33.4); MEAN CORPUSCULAR HGB CONC 33.3 g/dL (32.0-36.0); MEAN CORPUSCULAR VOLUME 85 fl (80-97); MONOCYTES % (AUTO) 11.3 % (3-13); PLATELET COUNT 191 10^3/uL (150-450); RED BLOOD COUNT 4.69 10^6/uL (3.72-5.28); RED CELL DISTRIBUTION WIDTH 14.1 % (11.5-14.0); SEGMENTED NEUTROPHILS % (AUTO) 53.1 % (42-78); TOTAL CELLS COUNTED % (AUTO) 100 %; WHITE BLOOD COUNT 5.5 10^3/uL (4.0-10.5)
[2020-05-04 10:46] LABS: ALBUMIN 4.7 g/dL (3.5-5.0); ALKALINE PHOSPHATASE 55 U/L (38-126); ANION GAP 10 (5-19); ASPARTATE AMINO TRANSFERASE 21 U/L (14-36); BILIRUBIN,TOTAL 0.4 mg/dL (0.2-1.3); BLOOD UREA NITROGEN 10 mg/dL (7-20); CALCIUM 9.3 mg/dL (8.4-10.2); CARBON DIOXIDE 28 mmol/L (22-30); CHLORIDE 102 mmol/L (98-107); CHOLESTEROL 104.21 mg/dL (0-200); GLUCOSE 129 mg/dL (75-110); POTASSIUM 4.4 mmol/L (3.6-5.0); TOTAL PROTEIN 7.4 g/dL (6.3-8.2); TRIGLYCERIDES 135 mg/dL (<150)
[2020-05-04 10:57] LABS: DIRECT LDL 51 mg/dL (<100)
== END ==
LOC: OD 09:33
PROVIDERS: ATTEND Physician Assistant
DX: E78.2 Mixed hyperlipidemia (principal); E55.9 Vitamin D deficiency, unspecified; D50.9 Iron deficiency anemia, unspecified; D51.9 Vitamin B12 deficiency anemia, unspecified; R73.01 Impaired fasting glucose; Z01.419 Encounter for gynecological examination (general) (routine) without abnormal findings
CPT/HCPCS: 36415; 80053; 80061; 82306; 82607; 82728; 83036; 85025